=== PATIENT | female | born 1995 | race Two or more races ===

== ENCOUNTER 2016-09-08 03:30 | Emergency (ER) | payer OTHER ==
[2016-09-08 03:38] VITALS: BP 121/92; PULSE 89; RESP 18; TEMP 98.1; O2SAT 96
--- NOTE | 2016-09-08 03:50 | EDPHY ---
H & P Stated Complaint: C/O pain in right leg x1 week, no trauma, no numb HPI/ROS: HPI CHIEF COMPLAINT: Right leg pain, right knee pain, right leg spasms x1 week. HISTORY OF PRESENT ILLNESS: Patient is a otherwise healthy 21-year-old female significant past medical history for asthma, does not take any daily medications she presents emergency room with right knee pain and right thigh pain x1 week. Denies any trauma or recent injury that she can recall. Patient tells me that she had achiness in her right thigh right knee. Ongoing pain. Was unable sleep tonight decided come the emergency room. She denies chest pain, shortness of breath, pleuritic pain or hemoptysis. Denies trauma. Denies her right leg being more swollen than her left leg. Denies a history of DVT PE. Not on control. Past Medical History: Asthma Past Surgical History: No recent surgery Social History: [employer] student, from [employer] Family History: Noncontributory ROS REVIEW OF SYSTEMS: A comprehensive 10 point review of systems is otherwise negative aside from elements mentioned in the history of present illness. Exam Constitutional appears well nontoxic, triage nursing summary reviewed, vital signs reviewed, awake/alert. Eyes normal conjunctivae and sclera, EOMI, PERRLA. HENT normal inspection, atraumatic, moist mucus membranes, no epistaxis, neck supple/ no meningismus, no raccoon eyes. Respiratory clear to auscultation bilaterally, normal breath sounds, no respiratory distress, no wheezing. Cardiovascular rate normal, regular rhythm, no murmur, no edema, distal pulses normal. Gastrointestinal soft, non-tender, no rebound, no guarding, normal bowel sounds, no distension, no pulsatile mass. Genitourinary no CVA tenderness. Musculoskeletal right lower extremity: Nontender palpation, full range of motion of the knee and ankle. Distally neurovascular intact good pulse. Good cap refill, warm extremity no significant swelling on exam. no midline vertebral tenderness, full range of motion, no calf swelling, no tenderness of extremities, no meningismus, good pulses, neurovascularly intact. Skin pink, warm, & dry, no rash, skin atraumatic. Neurologic awake, alert and oriented x 3, AAOx3, moves all 4 extremities equally, motor intact, sensory intact, CN II-XII intact, normal cerebellar, normal vision, normal speech. Psychiatric normal mood/affect. Heme/Lymph/Immune no lymphadenopathy. Differential Diagnosis: Includes but is not limited to in a particular order a osteoarthritis, muscle spasm, DVT, bony abnormality, joint effusion, bursitis Medical Decision Making: Plan for this patient x-ray right knee, as that is where she is most tender, ultrasound right lower extremity rule out DVT. Ibuprofen here in the emergency room for pain control. Re-evaluation: The ultrasound of the right lower extremity for DVT is unremarkable. Clean ultrasound no DVT evident. X-ray of her right knee is unremarkable. No fracture bony abnormality. Image interpreted by myself. I recommend she ice her leg. Rest her leg. Takes anti-inflammatory pain meds for pain control. Return emergency room if there is worsening symptoms including severe pain, questions or concerns. She understands. Source: Patient - Personal History LMP (Females 10-55): Now Current Tetanus Diphtheria and Acellular Pertussis (TDAP): Yes Tetanus Vaccine Date: 2012 - Medical/Surgical History Hx Asthma: Yes Hx Chronic Respiratory Disease: No Hx Diabetes: No Hx Cardiac Disease: No Hx Renal Disease: No Hx Cirrhosis: No Hx Alcoholism: No Hx HIV/AIDS: No Hx Splenectomy or Spleen Trauma: No Other PMH: PMH:asthma. PSH:none - Social History Smoking Status: Never smoked Constitutional: Initial Vital Signs Temperature (C) 36.7 C 09/08/16 03:35 Heart Rate 89 09/08/16 03:35 Respiratory Rate 18 09/08/16 03:35 Blood Pressure 121/92 H 09/08/16 03:35 O2 Sat (%) 96 09/08/16 03:35 O2 Delivery Mode Room Air Allergies/Adverse Reactions: No Known Allergies Allergy (Verified 01/14/16 04:08) Home Medications: Medication Instructions Recorded Ventolin Hfa Inhaler 11/01/15 Albuterol [Ventolin Hfa Inhaler] 200 puffs IH Q4 PRN #1 mdi 12/31/15 Ibuprofen [Motrin (*)] 800 mg PO Q6-8PRN #10 tab 09/08/16 Medical Decision Making - Data Points Medications Given: Discontinued Medications Ibuprofen (Motrin) 800 mg PO EDNOW ONE Stop: 09/08/16 04:06 Last Admin: 09/08/16 04:10 Dose: 800 mg Departure - Departure Disposition: Home, Routine, Self-Care Clinical Impression: Leg pain, right Condition: Good Instructions: Knee Pain (ED), Leg Pain (ED) Additional Instructions: 1.Recommend you rest your leg. No strenuous activity 2. Ice your knee 3. Alternate Ibuprofen and tylenol for pain control. You May alternate these every 4-6 hours for pain control. Referrals: Daksha Paniagua MD [Primary Care Provider] - As per Instructions Prescriptions: Ibuprofen [Motrin (*)] 800 mg PO Q6-8PRN #10 tab
[2016-09-08] MEDS ORDERED: IBUPROFEN 200 MG TAB PO ONE (04:05)
== END 2016-09-08 05:02 | disposition home or self-care (01) ==
DX: M79.604 Pain in right leg (principal); J45.909 Unspecified asthma, uncomplicated

== ENCOUNTER 2016-09-12 00:30 | Emergency (ER) | payer OTHER ==
[2016-09-12 00:37] VITALS: RESP 16; TEMP 98.1
[2016-09-12 01:51] LABS: ANION GAP 11 mEq/L (8-16); CALCIUM 9.8 mg/dL (8.5-10.4); CARBON DIOXIDE 22 mEq/l (22-31); CHLORIDE 109 mEq/L (97-110); GLOMERULAR FILTRATION RATE > 60; GLUCOSE 97 mg/dL (70-100); POTASSIUM 4.1 mEq/L (3.5-5.2); SODIUM 142 mEq/L (134-144)
--- NOTE | 2016-09-12 02:48 | EDPHY ---
H & P Stated Complaint: R leg swelling Time Seen by Provider: 09/12/16 00:49 HPI/ROS: HPI The patient presents with right leg swelling for the last several weeks. She feels that her symptoms are getting slightly worse. She was evaluated here a few days ago with a DVT study and knee x-ray, both of which were unremarkable. She says she is feeling some swelling of the medial portion of her right calf, she says she has been sitting and studying and has not been moving around very much. The swelling is constant. She denies any direct trauma.. REVIEW OF SYSTEMS Constitutional: No fever, no chills. Eyes: No discharge. ENT: No sore throat. Cardiovascular: No chest pain, no palpitations. Respiratory: No cough, no shortness of breath. Gastrointestinal: No abdominal pain, no vomiting. Genitourinary: No hematuria. Musculoskeletal: No back pain. Skin: No rashes. Neurological: No headache. PMHx: Asthma Soc Hx: College student, from [facility] PHYSICAL General Appearance: Alert, no distress Eyes: Pupils equal and round no pallor or injection ENT, Mouth: Mucous membranes moist Respiratory: There are no retractions, lungs are clear to auscultation Cardiovascular: Regular rate and rhythm Gastrointestinal: Abdomen is soft and non-tender, no masses, bowel sounds normal Neurological: A&O, moves all extremities Skin: Warm and dry, no rashes Musculoskeletal: Neck is supple non tender Extremities: Right calf maximum diameter is 43 cm, left calf maximum diameter is 42.5 cm, there is some fullness of her medial calf on the right which is minimal, there is minimal tenderness, there is no overlying skin changes Psychiatric: Patient is oriented X 3, there is no agitation Source: Patient Exam Limitations: No limitations - Personal History LMP (Females 10-55): 1-7 Days Ago Current Tetanus/Diphtheria Vaccine: Yes Current Tetanus Diphtheria and Acellular Pertussis (TDAP): Yes Tetanus Vaccine Date: 2012 - Medical/Surgical History Hx Asthma: Yes Hx Chronic Respiratory Disease: No Hx Diabetes: No Hx Cardiac Disease: No Hx Renal Disease: No Hx Cirrhosis: No Hx Alcoholism: No Hx HIV/AIDS: No Hx Splenectomy or Spleen Trauma: No Other PMH: PMH:asthma. PSH:none - Social History Smoking Status: Never smoked Constitutional: Initial Vital Signs Temperature (C) 36.7 C 09/12/16 00:35 Heart Rate 88 09/12/16 00:35 Respiratory Rate 16 09/12/16 00:35 Blood Pressure 129/84 H 09/12/16 00:35 O2 Sat (%) 97 09/12/16 00:35 O2 Delivery Mode Room Air Allergies/Adverse Reactions: No Known Allergies Allergy (Verified 09/12/16 00:34) Home Medications: Medication Instructions Recorded Ventolin Hfa Inhaler 11/01/15 Albuterol [Ventolin Hfa Inhaler] 200 puffs IH Q4 PRN #1 mdi 12/31/15 Ibuprofen [Motrin (*)] 800 mg PO Q6-8PRN #10 tab 09/08/16 Medical Decision Making Differential Diagnosis: This is a 21-year-old female who re-presented to the emergency room for right calf pain and swelling. Her exam is quite benign. She has minimal swelling of the calf without much tenderness. There are no skin changes. Given her recent negative DVT study and knee x-ray, I do not think further imaging is warranted. She could possibly have a myositis, or an electrolyte disturbance causing leg cramps. In the emergency room CK and Chem panel were checked and were both unremarkable. I explained this to her. She questioned if her symptoms could be related to anxiety. She will be discharged from the emergency room. I have instructed her to rest, ice, elevate the leg. - Data Points Laboratory Results: Laboratory Results 09/12/16 01:20 Departure - Departure Disposition: Home, Routine, Self-Care Clinical Impression: Myalgia, Leg pain Condition: Good Instructions: Leg Pain (ED) Additional Instructions: Please follow-up with your regular doctor if you are not better in the next few days. You can take Tylenol or ibuprofen as needed for pain. Please use ice and elevation as well to see if this helps your symptoms. Referrals: Daksha Paniagua MD [Primary Care Provider] - As per Instructions
[2016-09-12 03:09] VITALS: BP 121/84; PULSE 76; O2SAT 96
== END 2016-09-12 03:09 | disposition home or self-care (01) ==
DX: M79.604 Pain in right leg (principal); M79.1 Myalgia; J45.909 Unspecified asthma, uncomplicated

== ENCOUNTER 2016-12-22 02:45 | Emergency (ER) | payer OTHER ==
[2016-12-22 02:51] VITALS: O2SAT 98
--- NOTE | 2016-12-22 04:24 | EDPHY ---
H & P Stated Complaint: Blood in stool, swelling of R leg subsiding. Long flight. Time Seen by Provider: 12/22/16 04:01 HPI/ROS: HPI The patient presents with left-sided lower quadrant abdominal pain an episode of bright red blood per rectum. The patient was on a long airplane flight today , about 20 hours in length and during the flight she noticed that she was having some tenderness in her left lower quadrant. It went away. When she arrived home at about 6:00 p.m. she had 1 episode of bright red blood with a bowel movement. There was blood in the toilet bowl without any clots of blood. Her stools were not dark and were formed and brown. She denies any constipation or painful defecation. His just prior to presentation she had the left lower quadrant abdominal pain again lasting for 5-10 minutes which felt cramping and pulsatile in nature. It has subsided now that she is in the emergency department and she feels well. She has not had any vomiting.. REVIEW OF SYSTEMS Constitutional: No fever, no chills. Eyes: No discharge. ENT: No sore throat. Cardiovascular: No chest pain, no palpitations. Respiratory: No cough, no shortness of breath. Gastrointestinal: See HPI Genitourinary: No hematuria. Musculoskeletal: No back pain. Skin: No rashes. Neurological: No headache. PMHx: Asthma Soc Hx: College student, from [facility] PHYSICAL General Appearance: Alert, no distress Eyes: Pupils equal and round no pallor or injection ENT, Mouth: Mucous membranes moist Respiratory: There are no retractions, lungs are clear to auscultation Cardiovascular: Regular rate and rhythm Gastrointestinal: Abdomen is soft and non-tender, no masses, bowel sounds normal Rectal: Small external hemorrhoid at 6 o'clock just proximal to the anal verge , no active bleeding, stool is brown Neurological: A&O, moves all extremities Skin: Warm and dry, no rashes Musculoskeletal: Neck is supple non tender Extremities: symmetrical, full range of motion Psychiatric: Patient is oriented X 3, there is no agitation Source: Patient Exam Limitations: No limitations - Personal History LMP (Females 10-55): 8-14 Days Ago Current Tetanus/Diphtheria Vaccine: Yes Current Tetanus Diphtheria and Acellular Pertussis (TDAP): Yes Tetanus Vaccine Date: 2012 - Medical/Surgical History Hx Asthma: Yes Hx Chronic Respiratory Disease: No Hx Diabetes: No Hx Cardiac Disease: No Hx Renal Disease: No Hx Cirrhosis: No Hx Alcoholism: No Hx HIV/AIDS: No Hx Splenectomy or Spleen Trauma: No Other PMH: PMH:asthma. PSH:none - Social History Smoking Status: Never smoked Constitutional: Initial Vital Signs Temperature (C) 36.7 C 12/22/16 02:48 Heart Rate 78 12/22/16 02:48 Respiratory Rate 16 12/22/16 02:48 Blood Pressure 153/92 H 12/22/16 02:48 O2 Sat (%) 98 12/22/16 02:48 O2 Delivery Mode Room Air Allergies/Adverse Reactions: No Known Allergies Allergy (Verified 12/22/16 02:51) Home Medications: Medication Instructions Recorded Ventolin Hfa Inhaler 11/01/15 Albuterol [Ventolin Hfa Inhaler] 200 puffs IH Q4 PRN #1 mdi 12/31/15 Medical Decision Making Differential Diagnosis: 21-year-old healthy female presents with left lower quadrant abdominal pain intermittently for 1 day as well as bright red blood per rectum, single episode with a bowel movement. On exam here, she is well-appearing, she has normal vital signs. She has no abdominal tenderness on my exam. Rectal exam does reveal a small external hemorrhoid with no active bleeding or dark stools. Differential diagnoses considered include diverticulitis, bleeding hemorrhoid, colitis. Given absence of symptoms while in the emergency department, I am not concerned about serious pathology at this time. I feel her bleeding could have very well come from external hemorrhoid revealed on exam. I think colitis or diverticulitis would be much less likely. She has no tenderness. As I have discussed watchful waiting with her and I feel this is the best course of action moving forward. She is to return if her pain or symptoms return. Otherwise she can follow up with primary care. Departure - Departure Disposition: Home, Routine, Self-Care Clinical Impression: BRBPR (bright red blood per rectum), LLQ abdominal pain Condition: Good Instructions: Rectal Bleeding (ED) Additional Instructions: Please make sure to drink plenty of fluids. If your pain is worse or if you have prolonged rectal bleeding, you should return to the emergency department. Otherwise, you can follow up with the primary care doctor I have referred you to. Referrals: Heather Ayoub MD [Medical Doctor] - As per Instructions
[2016-12-22 04:46] VITALS: BP 128/82; PULSE 59; RESP 18; TEMP 97.9
== END 2016-12-22 04:44 | disposition home or self-care (01) ==
DX: R10.32 Left lower quadrant pain (principal); K62.5 Hemorrhage of anus and rectum; J45.909 Unspecified asthma, uncomplicated

== ENCOUNTER → 2016-12-24 | Outpatient (CLI) | payer OTHER | LOC: FIMAGING 17:09 | PROVIDERS: ATTEND Family Medicine Sports Medicine | DX: M79.89 Other specified soft tissue disorders (principal) ==